=== PATIENT | male | born 1965 | race Caucasian/White ===

== ENCOUNTER 2017-04-27 21:54 | Observation (INO) | payer BC, OTHER ==
[2017-04-27 22:20] LABS: #Basophils 0.1 thou/uL (0.0-0.2); #Eosinphils 0.3 thou/uL (0.0-0.7); #Lymphocytes 2.7 thou/uL (1.20-3.40); #Monocytes 1.4 thou/uL (0.11-0.59); #Neutrophils 11.7 thou/uL (1.40-6.50); %Basophils 0.4 % (0.0-1.0); %Eosinophils 1.9 % (0.0-10.0); %Lymphocytes 16.6 % (21.0-51.0); %Monocytes 8.5 % (0.0-10.0); Hematocrit 48.2 % (42.0-52.0); Mean Platelet Volume 7.9 fL (7.4-10.4); Red Blood Cell (RBC) Count 5.07 mill/uL (4.70-6.10); White Blood Cell (WBC) Count 16.1 thou/uL (4.8-10.8)
[2017-04-27 22:27] LABS: PTT 24.1 SEC (22.9-36.1); Prothrombin Time 12.3 SEC (12.0-14.7)
[2017-04-27 22:51] LABS: Acetaminophen Less than 6.0 mcg/mL (10.0-30.0); Salicylate Less than 8.0 mg/dL (15.0-30.0)
[2017-04-27 22:53] LABS: ALT (SGPT) 40 U/L (8-55); AST (SGOT) 22 U/L (5-34); Alkaline Phosphatase 66 U/L (40-150); Anion Gap 17 mmol/L (10-20); BUN (Urea Nitrogen) 14 mg/dL (8.9-20.6); Bilirubin, Total 0.4 mg/dL (0.2-1.2); CK (CPK) 128 U/L (30-200); Calc. Creatinine Clearance 0 mL/min (70-130); Calcium 9.7 mg/dL (7.8-10.44); Carbon Dioxide 23 mmol/L (22-29); Chloride 96 mmol/L (98-107); Estimated GFR-MDRD 90; Lipase 49 U/L (8-78); Protein, Total 7.3 g/dL (6.0-8.3)
[2017-04-27 22:57] LABS: Troponin I Less than 0.010 ng/mL (< 0.028)
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
[2017-04-27 23:40] LABS: Bilirubin Negative (Negative); Blood, Urine Negative (Negative); Glucose, Urine (Dipstick) Negative (Negative); Ketone, Urine Negative (Negative); Nitrite Negative (Negative); Protein, Urine (Dipstick) Negative (Neg-Trace); Urobilinogen 0.2 mg/dL (0.2-1.0)
[2017-04-27 23:52] LABS: Amphetamine Not Detected (NotDetected); Methadone Not Detected (NotDetected); Methamphetamine Not Detected (NotDetected)
[2017-04-27] MEDS ORDERED: Ketorolac Tromethamine 30 MG/ML VIAL ONE (23:57)
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
[2017-04-28] MEDS ORDERED: Ondansetron ODT 4 MG TAB SL PRN (01:46)
[2017-04-28] MEDS ORDERED: Ondansetron HCl/PF 4 MG/2 ML Vial IVP PRN (01:46)
[2017-04-28] MEDS ORDERED: HYDROcodone/Acetaminophen 5/325 mg Tablet PO PRN ×2 (01:46)
[2017-04-28] MEDS ORDERED: Acetaminophen 325 MG TAB PO PRN (01:46)
[2017-04-28 01:51] LABS: Troponin I Less than 0.010 ng/mL (< 0.028)
[2017-04-28 02:03] VITALS: BMI 31.3
[2017-04-28] MEDS: Sodium Chloride 0.9% 1,000 ML IV SCH ×2 (02:20→13:13)
[2017-04-28 06:16] LABS: Troponin I Less than 0.010 ng/mL (< 0.028)
[2017-04-28 08:22] LABS: #Basophils 0.1 thou/uL (0.0-0.2); #Eosinphils 0.4 thou/uL (0.0-0.7); #Lymphocytes 2.2 thou/uL (1.20-3.40); #Monocytes 1.4 thou/uL (0.11-0.59); #Neutrophils 10.5 thou/uL (1.40-6.50); %Basophils 0.6 % (0.0-1.0); %Eosinophils 2.9 % (0.0-10.0); %Monocytes 9.6 % (0.0-10.0); Hematocrit 47.1 % (42.0-52.0); Mean Platelet Volume 8.2 fL (7.4-10.4); Red Blood Cell (RBC) Count 4.88 mill/uL (4.70-6.10); White Blood Cell (WBC) Count 14.6 thou/uL (4.8-10.8)
[2017-04-28 08:45] LABS: Anion Gap 16 mmol/L (10-20); BUN (Urea Nitrogen) 12 mg/dL (8.9-20.6); Calc. Creatinine Clearance 180 mL/min (70-130); Calcium 9.4 mg/dL (7.8-10.44); Carbon Dioxide 22 mmol/L (22-29); Chloride 102 mmol/L (98-107); Estimated GFR-MDRD Greater than 90
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
[2017-04-28 12:06] VITALS: BP 150/92; TEMP 97.7
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
== END 2017-04-28 13:50 | disposition home or self-care (01) ==
LOC: ERS 21:54 → 2SE 04-28 00:27
PROVIDERS: ADMIT Family Medicine; ATTEND Family Medicine
DX: R55 Syncope and collapse (principal); I10 Essential (primary) hypertension; E78.5 Hyperlipidemia, unspecified; E11.9 Type 2 diabetes mellitus without complications; E66.9 Obesity, unspecified; R05 Cough; M54.2 Cervicalgia; H54.7 Unspecified visual loss; F17.210 Nicotine dependence, cigarettes, uncomplicated; S20.219A Contusion of unspecified front wall of thorax, initial encounter; V47.5XXA Car driver injured in collision with fixed or stationary object in traffic accident, initial encounter; W22.11XA Striking against or struck by driver side automobile airbag, initial encounter; Z68.33 Body mass index [BMI] 33.0-33.9, adult; Z99.89 Dependence on other enabling machines and devices; Z79.84 Long term (current) use of oral hypoglycemic drugs; Z79.899 Other long term (current) drug therapy; Z90.49 Acquired absence of other specified parts of digestive tract; Z90.89 Acquired absence of other organs; Z83.3 Family history of diabetes mellitus
CPT/HCPCS: 36415; 36416; 70450; 70551; 71260; 72125; 74177; 80048; 80053; 80306; 80307; 81003; 82140; 82553; 83690; 83880; 84146; 84443; 84484; 85025; 85610; 85730; 93005; 96361; 96374; A4216; G0378; J1885

== ENCOUNTER 2020-04-17 15:43 | Outpatient (CLI) | payer BC ==
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
== END 2020-04-17 15:44 | disposition home or self-care (01) ==
LOC: BICRAD 15:43
PROVIDERS: ATTEND Family Medicine
DX: M25.512 Pain in left shoulder (principal); S43.102D Unspecified dislocation of left acromioclavicular joint, subsequent encounter
CPT/HCPCS: 36415; 80053; 80061; 81001; 82043; 83036; 84443; 85025; G0103

== ENCOUNTER → 2023-07-28 | Outpatient (CLI) | payer BC | LOC: SLEEPLAB 17:00 | PROVIDERS: ATTEND Family Medicine | DX: G47.33 Obstructive sleep apnea (adult) (pediatric) (principal); I10 Essential (primary) hypertension; E11.9 Type 2 diabetes mellitus without complications; G47.10 Hypersomnia, unspecified; F41.9 Anxiety disorder, unspecified; E66.9 Obesity, unspecified; R06.83 Snoring; R53.83 Other fatigue | CPT/HCPCS: 95800 ==